=== PATIENT | female | born 1955 | race Caucasian/White ===

== ENCOUNTER 2016-09-25 17:14 | Inpatient (IN) | payer MEDICARE, OTHER ==
[2016-09-25 17:53] LABS: ABSOLUTE NEUTROPHIL COUNT 7.5 K/mm3 (1.8-7.7); BASO # 0.1 K/mm3 (0.0-0.2); BASO % 0.5 % (0.2-1.0); EOS % 0.2 % (0.9-2.9); HEMATOCRIT 42.4 % (37.0-47.0); HEMOGLOBIN 13.6 gm/l (12.0-16.0); IMM NEUT # 0.1 K/mm3 (0-0.2); IMM NEUT% 0.5 % (0-1); LYMPH # 2.3 (1.0-4.8); LYMPH % 20.6 % (15-45); MEAN CELL VOLUME 94.6 fl (81.0-99.0); MEAN CORPUSCULAR HEMOGLOBIN 30.4 pg (27.0-31.0); MEAN CORPUSCULAR HGB CONC 32.1 g/dl (33.0-37.0); MEAN PLATELET VOLUME 9.6 fl (7.4-10.4); MONO # 1.2 (0.0-0.8); MONO % 10.7 % (4-12); NEUT % 67.5 % (43-75); PLATELET COUNT 304 K/mm3 (130-400); RED CELL DISTRIBUTION WIDTH 15.5 % (11.5-14.5)
[2016-09-25 18:05] LABS: ALB/GLOB RATIO 0.8 (>1.0)
[2016-09-25] MEDS ORDERED: SODIUM CHLORIDE 0.9% 3,000 ML ONE (18:38)
[2016-09-25] MEDS ORDERED: ACETAMINOPHEN 500 MG TABLET ONE (18:39)
[2016-09-25] MEDS ORDERED: CEFTRIAXONE 2 GRAM DUPLEX 50 ML IV ONE (18:39)
[2016-09-25] MEDS ORDERED: AMPICILLIN SODIUM 2 G in NS 0.9% (MINI-BAG PLUS) 100 ML IV ONE (19:00)
[2016-09-25] MEDS ORDERED: MAGNESIUM HYDROXIDE 30 ML UDCUP PO PRN (19:30)
[2016-09-25] MEDS ORDERED: BLISTEX LIPSTICK 1 EACH TP PRN (19:30)
[2016-09-25] MEDS ORDERED: BISACODYL 5 MG TABLET.EC PO PRN (19:30)
[2016-09-25] MEDS ORDERED: BISACODYL 10 MG SUP PR PRN (19:30)
[2016-09-25] MEDS ORDERED: MENTHOL/CETYLPYRD 1 EACH LOZENGE PO PRN (19:30)
[2016-09-25] MEDS ORDERED: SODIUM CHLORIDE 0.9% 100 ML IV PRN (19:30)
[2016-09-25] MEDS ORDERED: ALBUTEROL NEB 2.5 MG/3 ML VIAL.NEB NEB PRN (19:32)
--- NOTE | 2016-09-25 19:34 | CT ---
HEAD W/O CON History: Fever with cough and headache. Comparison: None. Procedure: 1 mm axial images were obtained through the head from the vertex to the base of the skull without intravenous contrast. Stacked reconstructed 5 mm images were then obtained in the axial, coronal and sagittal planes. Findings: The lateral ventricles. Of normal size and shape without evidence of hydrocephalus. No evidence of midline shift is seen. No mass or mass effect is identified. No evidence of intra or extra-axial fluid collections or hemorrhage is seen. There are mild periventricular deep white matter low-attenuation changes suggested. The basilar cisterns are uneffaced. The posterior fossa structures are unremarkable. Bone windows demonstrate no acute osseous abnormalities. Impression: 1. Mild periventricular deep white matter low-attenuation changes most consistent with small vessel ischemia considering patient age. 2. An otherwise negative unenhanced CT scan of the head.
--- NOTE | 2016-09-25 19:35 | RAD ---
CHEST-AP BEDSIDE HISTORY: Fever with cough. COMPARISONS: None. FINDINGS: A single view of the chest was obtained in the upright position demonstrating normal-appearing soft tissue and bony structures. The heart size is within expected for technique. There is dense is suggested airspace consolidation seen within the left upper lobe. No effusion is seen. The hilar and mediastinal structures are intact. IMPRESSION: 1. A dense left upper lobe infiltrate. Follow-up to resolution is recommended.
[2016-09-25] MEDS ORDERED: LACTATED RINGERS 1,000 ML IV SCH (19:45)
[2016-09-25 20:12] LABS: SPECIFIC GRAVITY 1.015 (1.001-1.030); URINE BILIRUBIN NEGATIVE (NEGATIVE); URINE BLOOD 4+ (NEGATIVE); URINE GLUCOSE (UA) NEGATIVE (NEGATIVE); URINE LEUKOCYTE ESTERASE NEGATIVE (NEGATIVE); URINE NITRITE NEGATIVE (NEGATIVE); URINE PROTEIN 1+ (NEGATIVE); URINE UROBILINOGEN NORMAL (0-1 mg/dl)
[2016-09-25 20:32] LABS: URINE APPEARANCE CLEAR; URINE COLOR YELLOW
[2016-09-25 20:36] LABS: URINE AMORPHOUS SEDIMENT 2+; URINE BACTERIA RARE; URINE RBC 0-1 /hpf; URINE WBC 0-1 /hpf
[2016-09-25] MEDS ORDERED: MAGNESIUM SULFATE 2 G/50 ML 2 G in Premix (Water) 50 ml 1 EACH IV ONE (21:00)
[2016-09-25] MEDS: VANCOMYCIN HCL 2.5 G in SODIUM CHLORIDE 0.9% 500 ML IV ONE ×2 (21:00→22:03)
[2016-09-25 21:05] VITALS: BMI 34.8
[2016-09-25] MEDS ORDERED: PUMP TUBING ONE ×2 (22:07→23:13)
[2016-09-25] MEDS: ENOXAPARIN SODIUM 40 MG/0.4 ML SYRINGE SUB-Q SCH (22:16)
[2016-09-25] MEDS ORDERED: LACTATED RINGERS 500 ML IV ONE (22:20)
[2016-09-25] MEDS ORDERED: ASPIRIN (UNCOATED) 325 MG TABLET PO ONE (22:50)
[2016-09-25] MEDS ORDERED: HYDROCORTISONE SOD SUCC 100 MG VIAL IV ONE (22:53)
[2016-09-25] MEDS ORDERED: HYDROCODONE/ACETAMINOPHEN 5/325MG TABLET PO PRN (23:00)
[2016-09-25] MEDS: AZITHROMYCIN 500 MG in SODIUM CHLORIDE 0.9% 250 ML IV SCH (23:24)
[2016-09-26] MEDS ORDERED: ACETAMINOPHEN 325 MG TABLET PO PRN (01:00)
[2016-09-26 05:49] LABS: TROPONIN I 0.06 ng/ml (0.0-0.06)
[2016-09-26 05:55] LABS: ABSOLUTE NEUTROPHIL COUNT 7.5 K/mm3 (1.8-7.7); BASO % 0.3 % (0.2-1.0); CKMB ISOENZYME 100.3 ng/ml (0.6-6.3); HEMOGLOBIN 12.4 gm/l (12.0-16.0); IMM NEUT # 0.1 K/mm3 (0-0.2); IMM NEUT% 0.6 % (0-1); LYMPH # 1.5 (1.0-4.8); LYMPH % 15.5 % (15-45); MEAN CORPUSCULAR HEMOGLOBIN 30.4 pg (27.0-31.0); MEAN PLATELET VOLUME 9.5 fl (7.4-10.4); MONO # 0.7 (0.0-0.8); MONO % 7.5 % (4-12); NEUT % 76.1 % (43-75); PLATELET COUNT 261 K/mm3 (130-400); RED CELL DISTRIBUTION WIDTH 15.7 % (11.5-14.5)
[2016-09-26 06:00] LABS: CALCIUM 8.6 mg/dL (8.6-10.3)
--- NOTE | 2016-09-26 08:47 | HP ---
Lucero Hanson [id number] DATE OF ADMISSION: 09/25/2016 CHIEF COMPLAINT: Fever. HISTORY OF PRESENT ILLNESS: The patient is a 60-year-old female who presented to the [facility] Emergency Department with a four day history of fever, weakness, malaise, and reports that she has been having chronic cough which is unchanged from baseline. She denies any chest pain. She has had some neck stiffness and some headaches with these symptoms. She reports that her weaknesses progressed to the point that she had to use a wheelchair when disembarking from the plane and she recently arrived from [facility]. Workup in the emergency department showed a dense infiltrate in the left upper lobe consistent with pneumonia. Initially meningitis was consider, but when the source of fever was found this was felt to be less likely. REVIEW OF SYSTEMS: Significant for subjective fever for the last four days associated with chills and severe weakness and fatigue. She denies any upper respiratory symptoms. She has had a chronic cough. She denies any dyspnea. She reports the cough is nonproductive. She denies any chest pain, orthopnea, or lower extremity edema. She denies any palpitations. She denies any vomiting. She has had mild nausea with no appetite. She has had no diarrhea or constipation. She suffers from chronic arthralgia's in the hips and the hands felt to be due to her rheumatoid arthritis. She reports some slight headaches over the last few days. No fainting, blackouts, or seizures. No urinary complaints. No visual changes. She reports some chronic numbness in the tips of her fingers. PAST MEDICAL HISTORY: Negative for any hospitalizations except for childbirth. She had the diagnosis of rheumatoid arthritis and dermatomyositis for the past three years. 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 She is under the care of a naturopathic doctor for these conditions. She was recently referred to a wire preparation worker on September 27 but does not recall the name of the specialist. She has taken methotrexate in the past, but was intolerant to the drug and it did not help. She is on chronic prednisone, but does not know the dose. Her meds are prescribed by the naturopathic doctor. PAST SURGICAL HISTORY: Negative. ALLERGIES: She is reporting an adverse reaction to Codeine. CURRENT MEDICATIONS: Consist of: 1. Nature throid, dose unknown. 2. Prednisone, dose unknown. 3. She also takes supplements. 4. Her pharmacy is [facility]. FAMILY HISTORY: Significant for daughters with thyroid disease and a mother with thyroid disease. Her mother also had Crohn's disease and her father had diabetes. SOCIAL HISTORY: She is . She has two grown children. She denies history of smoking, alcohol, or drug use. 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 As I mentioned, her primary care provider is Dr. Frank a naturopathic doctor in [place]. PHYSICAL EXAMINATION: VITALS: Show initially a temperature up to 103 degrees with a pulse of 100. Her current vitals show a temperature of 99.2, pulse 78, blood pressure 94/52, respirations 16, oxygen saturations were 93% on room air and 96% on 2 liters, body mass index is 34.9 with a weight of 110.2 kg. GENERAL: This is a ill appearing obese female in no acute respiratory distress. HEENT: Shows slight cushingoid appearance with swelling in the periorbital tissues. Pupils are equal, round, and reactive to light. Extraocular movements are intact. No oral lesions are present. NECK: Supple without lymphadenopathy or thyromegaly. LUNGS: Generally clear to auscultation bilaterally. CARDIOVASCULAR: Reveals a regular rate and rhythm without a murmur. ABDOMEN: Soft, nontender, nondistended with positive bowel sounds. EXTREMITIES: Show no peripheral edema. SKIN: Warm, dry, and intact. Dorsalis pedis pulses are 2+ in both feet. Capillary refill is less than 2 seconds. I do not identify any skin rashes. DIAGNOSTIC IMAGING STUDIES: Included a chest x-ray which shows a dense left upper lobe infiltrate. CT of the brain shows mild periventricular deep white matter, low attenuation changes most consistent with small vessel ischemia. A 12 lead EKG shows sinus rhythm with a left anterior fascicular block, also evidence of left ventricular hypertrophy. There are Q-waves in V1 through V3 and what looks like early repolarization, I do not believe this is an acute ST elevation myocardial infarction. LABORATORY STUDIES: Notable for a CBC with a white blood cell count elevation at 11,000, hemoglobin is 13.6, platelet count is 304,000. Differential was normal. Erythrocyte sedimentation rate was 40, lactate was 1.1. Chemistry profile shows a sodium of 128, potassium 4.4, carbon dioxide 26, BUN 11, creatinine 0.6, glucose 84. Magnesium level is 1.8. Total bilirubin 0.6, AST is 175, ALT is 127. Alkaline phosphatase is 41. Total CPK is 5654. CK-MB level is 63.7. A troponin I level was borderline elevated at 0.12. TSH was mildly elevated at 5.92. Albumin is slightly low at 3 with a globulin of 3.7. Urinalysis shows specific gravity of 1.015, 1+ protein, 4+ blood, rare bacteria. ASSESSMENT: The patient has community acquired bacterial pneumonia with findings of sepsis versus severe sepsis. She has elevated transaminase levels which I believe are due to her dermatomyositis. She also has a history of rheumatoid arthritis. She has an abnormal EKG with left anterior fascicular block and Q-waves in the anterior septal leads. She has borderline troponin levels. I do not think she is having an acute myocardial infarction, but she has been given a full strength aspirin and will trend the enzymes. Without a baseline EKG is difficult to determine the significance of her EKG abnormalities, but this could represent conduction disease related to her autoimmune disorder. There is a concern that she is at risk for interstitial lung disease as a complications of her rheumatoid arthritis and/or dermatomyositis. If she is not improving or responding to treatment consider CT of the chest or consultation with pulmonology services. She has mild hypomagnesemia and mild hyponatremia. We will replace her magnesium and follow her sodium after fluids have been administered. She has hypothyroidism slightly suboptimally replaced. We will try and determine her usual dose and discuss increasing it. She is on chronic prednisone therapy, unknown dose. We will give her stress dose of hydrocortisone IV 50 mg times one. Consider increasing her prednisone replacement dose in the morning for the next three days as we determine what the usual dose is. We will contact [facility] in the morning for this information. Blood cultures have been obtained and she will be treated with Rocephin and Zithromax for her pneumonia. Oxygen supplementation is needed for oxygen saturations to keep oxygen saturations greater than 92%. Venous thromboembolism prophylaxis is indicated due to moderate risk and she will be given Lovenox for that purpose. Further treatment and recommendations will depend on her hospitla course. JOB: [id number] CC: Dr. Frank, naturopathic physician in [place].
--- NOTE | 2016-09-26 10:58 | PDOC43 ---
- Subjective Chief Complaint: weakness, fever Subjective: Reports Pain Tolerable, Reports Fever (last night), Denies Shortness of Breath - Objective Vital Signs Temperature 97.7 F 09/26/16 08:00 Pulse Rate 63 09/26/16 07:55 Respiratory Rate 18 09/26/16 07:55 Blood Pressure 103/60 09/26/16 07:55 O2 Saturation by Pulse Oximetry 95 09/26/16 07:55 Oxygen Delivery Method Room Air Oxygen Flow Rate 0 Intake and Output 09/25/16 09/26/16 09/27/16 06:59 06:59 06:59 Intake Total 4709 Output Total 1711 Balance 2998 General: Alert, Oriented x3, Cooperative, Moderate Distress HEENT: Mucous membr. moist/pink Lungs: Other (some ronchi over left upper lobe) Cardiovascular: Regular Rate and Rhythm Abdomen: Soft, Normal Bowel Sounds, Non-Distended, No Tenderness Extremities: No Edema Skin: Warm, Dry, Intact Laboratory 09/26/16 05:15 09/26/16 05:15 09/26/16 05:15 RBC 4.08 L MCHC 31.0 L RDW 15.7 H Estimated GFR 163 H Creatine Kinase 4282 H CK-MB (CK-2) 100.3 H Current Medications: Current meds reviewed in EMR. - Problems: Assessment/Plan (1) Pneumonia Qualifiers: Pneumonia type: due to unspecified organism Laterality: left Lung location: upper lobe of lung Qualifier Code: (J18.1) Lobar pneumonia, unspecified organism Status: AcuteAssessment/Plan: with sepsis versus severe sepsis on rocephin and zithromax for YUKI infiltrate, Cx pending - CLINICAL AUDITOR (2) Weakness Status: AcuteAssessment/Plan: severe and out of proportion to infection, suspect due to sepsis and myopathy from dermatomyositis (3) Abnormal ECG Status: AcuteAssessment/Plan: suspect underlying conduction disease possibly related to dermatomyositis - consider outpatient cardiac workup (4) Dermatomyositis Status: ChronicAssessment/Plan: On chronic prednisone therapy, plans to see a trainmaster, no H/O lung involvement but reports H/O chronic bronchitis - cont. prednisone (5) Elevated troponin Status: AcuteAssessment/Plan: unclear etiology possible demand ischemia related to sepsis - consider outpatient cardiac eval (6) Hypomagnesemia Status: AcuteAssessment/Plan: replace and follow (7) Hyponatremia Status: AcuteAssessment/Plan: likely due to pneumonia - will follow (8) Hypothyroid Qualifiers: Hypothyroidism type: due to Yazmin's thyroiditis Qualifier Code: ( E03.8) Other specified hypothyroidism Status: ChronicAssessment/Plan: slightly under replace - encouraged to discuss with PCP (9) Rheumatoid arthritis Qualifiers: Rheumatoid arthritis location: unspecified site Rheumatoid factor presence: unspecified presence Qualifier Code: (M06.9) Rheumatoid arthritis , unspecified Status: ChronicAssessment/Plan: plans to see Rheum, no H/O lung involvement but reports chronic bronchitis VTE Prophylaxis: Lovenox Disposition: home in 1-3 days, PT/OT eval.
[2016-09-26] MEDS: PREDNISONE 10 MG TABLET PO SCH (11:51)
[2016-09-26] MEDS: Magnesium Oxide 400 MG TABLET PO SCH (11:51)
[2016-09-26] MEDS: [UNRECOGNIZED DRUG - OTHER] PO SCH (12:58)
[2016-09-26] MEDS: THYROID 30 MG PO SCH (12:58)
[2016-09-26] MEDS ORDERED: CEFTRIAXONE 1 GRAM DUPLEX 1 G in Premix (D5W) 50 ml 1 EACH IV SCH (19:00)
[2016-09-26] MEDS: ENOXAPARIN SODIUM 40 MG/0.4 ML SYRINGE SUB-Q SCH (19:32)
[2016-09-26] MEDS ORDERED: PUMP TUBING ONE (19:39)
[2016-09-26] MEDS: AZITHROMYCIN 500 MG in SODIUM CHLORIDE 0.9% 250 ML IV SCH (20:38)
[2016-09-27 06:00] LABS: ABSOLUTE NEUTROPHIL COUNT 5.9 K/mm3 (1.8-7.7); BASO % 0.4 % (0.2-1.0); EOS % 0.2 % (0.9-2.9); HEMATOCRIT 38.4 % (37.0-47.0); HEMOGLOBIN 11.9 gm/l (12.0-16.0); IMM NEUT # 0.1 K/mm3 (0-0.2); LYMPH # 1.9 (1.0-4.8); LYMPH % 20.6 % (15-45); MEAN CORPUSCULAR HEMOGLOBIN 30.1 pg (27.0-31.0); MEAN PLATELET VOLUME 9.8 fl (7.4-10.4); MONO # 1.3 (0.0-0.8); MONO % 14.1 % (4-12); NEUT % 63.7 % (43-75); PLATELET COUNT 293 K/mm3 (130-400); RED CELL DISTRIBUTION WIDTH 15.1 % (11.5-14.5)
[2016-09-27 06:22] LABS: CALCIUM 8.8 mg/dL (8.6-10.3); MAGNESIUM 2.1 mg/dL (1.9-2.7)
[2016-09-27] MEDS: THYROID 30 MG PO SCH (07:26)
[2016-09-27] MEDS: [UNRECOGNIZED DRUG - OTHER] PO SCH (07:26)
[2016-09-27] MEDS: PREDNISONE 10 MG TABLET PO SCH (08:37)
[2016-09-27] MEDS: Magnesium Oxide 400 MG TABLET PO SCH (08:37)
--- NOTE | 2016-09-27 10:47 | PDOC5 ---
ADMIT DATE: 09/25/16 DISCHARGE DATE: 09/27/16 ADMISSION DIAGNOSES: Left upper lobe pneumonia with severe sepsis PROCEDURES PERFORMED THIS HOSPITALIZATION: Head CT--no acute changes CONSULTATIONS: OT/PT--returned to baseline function HOSPITAL COURSE: This is a 60 year old with RA and dermatomyositis. She presented with a 4-5 day history of fever and weakness and was found to have a left upper lobe infiltrate. She was treated with ceftriaxone and azithromycin and had repid resolution of her symptoms and weakness. On September 27 she feels back to her baseline and requests discharge from the hospital. - Exam Vital Signs Temperature 97.8 F 09/27/16 07:24 Pulse Rate 73 09/27/16 07:24 Respiratory Rate 18 09/27/16 07:24 Blood Pressure 111/64 09/27/16 07:24 O2 Saturation by Pulse Oximetry 97 09/27/16 07:24 Oxygen Delivery Method Room Air Oxygen Flow Rate 0 General: Alert, Oriented x3, Cooperative, No Acute Distress HEENT: Mucous membr. moist/pink Lungs: Clear to Auscultation Bilaterally Cardiovascular: Regular Rate and Rhythm Abdomen: Soft, Normal Bowel Sounds, No Tenderness, No Masses Extremities: Normal Pulses, No Edema Skin: Normal Color Neurological: Normal Speech Psych/Mental Status: Normal Mood - Results Laboratory 09/27/16 05:30 09/27/16 05:30 09/27/16 05:30 RBC 3.96 L MCHC 31.0 L RDW 15.1 H Estimated GFR 163 H - Problems:Assessment/Plan (1) Pneumonia Qualifiers: Pneumonia type: due to unspecified organism Laterality: left Lung location: upper lobe of lung Qualifier Code: (J18.1) Lobar pneumonia, unspecified organism Status: AcuteAssessment/Plan: presumed bacterial, present on admit with severe sepsis. Much better, change to oral abx and discharge. (2) Abnormal ECG Status: ChronicAssessment/Plan: suspect underlying conduction disease possibly related to dermatomyositis - consider outpatient cardiac workup (3) Elevated troponin Status: AcuteAssessment/Plan: appears due to demand ischemia related to sepsis - consider outpatient cardiac eval (4) Hypomagnesemia Status: AcuteAssessment/Plan: resolved (5) Hyponatremia Status: AcuteAssessment/Plan: likely due to pneumonia - resolved (6) Weakness Status: AcuteAssessment/Plan: severe and out of proportion to infection, suspect due to sepsis and myopathy from dermatomyositis--much improved (7) Dermatomyositis Status: ChronicAssessment/Plan: On chronic prednisone therapy, plans to see a field radio technician, no H/O lung involvement but reports H/O chronic bronchitis - cont. prednisone (8) Hypothyroid Qualifiers: Hypothyroidism type: due to Yazmin's thyroiditis Qualifier Code: ( E03.8) Other specified hypothyroidism Status: ChronicAssessment/Plan: slightly under replace - encouraged to discuss with PCP (9) Rheumatoid arthritis Qualifiers: Rheumatoid arthritis location: unspecified site Rheumatoid factor presence: unspecified presence Qualifier Code: (M06.9) Rheumatoid arthritis , unspecified Status: ChronicAssessment/Plan: plans to see Rheum, no H/O lung involvement but reports chronic bronchitis - Disposition: Disposition: home - Discharge Plan Forms: Discharge Instructions Additional Instructions: See [employer] as planned. See your primary care doctor and discuss your thyroid replacement. Prescriptions: Azithromycin 500 mg PO BEDTIME #1 tablet Cefprozil 250 mg [CEFZIL 250 MG TABLET (SHF)] 250 mg PO BID 7 Days Condition: Good Disposition: Home
[2016-09-27 13:51] VITALS: BP 108/68
== END 2016-09-27 11:50 | disposition home or self-care (01) | DRG 871 ==
LOC: ED 17:14 → ICU 19:36 → MS 19:36
PROVIDERS: ADMIT Family Medicine; ATTEND Family Medicine
DX: A41.9 Sepsis, unspecified organism (principal); J15.9 Unspecified bacterial pneumonia; E87.1 Hypo-osmolality and hyponatremia; M33.90 Dermatopolymyositis, unspecified, organ involvement unspecified; R65.20 Severe sepsis without septic shock; R94.31 Abnormal electrocardiogram [ECG] [EKG]; E83.42 Hypomagnesemia; E06.3 Autoimmune thyroiditis; E03.9 Hypothyroidism, unspecified; M06.9 Rheumatoid arthritis, unspecified